=== PATIENT | female | born 1970 | race African-American/Black ===

== ENCOUNTER 2017-03-28 19:23 | Emergency (ER) | payer MEDICARE ==
--- NOTE | ~2017-03-28 | EKG ---
PATIENT: MELISSA SOSA UNIT #: [id number] Ventricular Rate: 93 BPM Atrial Rate: 93 BPM P-R Interval: 138 ms QRS Duration: 68 ms Q-T Interval: 346 ms QTC Calculation(Bezet): 430 ms P [place]: 73 degrees Calculated R [place]: 17 degrees Calculated T [place]: -8 degrees Diagnosis Line: Normal sinus rhythm Diagnosis Line: Right atrial enlargement Diagnosis Line: Nonspecific T wave abnormality Diagnosis Line: Abnormal ECG Diagnosis Line: When compared with ECG of 11-JUL-2012 07:33, Diagnosis Line: Inverted T waves have replaced nonspecific T wave Diagnosis Line: abnormality in Anterolateral leads Diagnosis Line: Confirmed by ADALBERTO LORENZANA MD ([id number]) on Diagnosis Line: 03/30/2017 8:45:46 AM INTERPRETING : CADEN
[2017-03-28 17:22] LABS: BASOPHIL# 0.1 X10e3 (0-0.3); BASOPHIL% 0.8 % (0-2.5); DIFF IND NO; EOSINOPHIL# 0.2 X10e3 (0-0.7); EOSINOPHIL% 1.5 % (0.0-7.0); HEMATOCRIT 44.6 % (35.0-45.0); HEMOGLOBIN 14.5 gm/dL (12.0-16.0); LYMPHOCYTE# 3.6 X10e3 (1.0-3.5); LYMPHOCYTE% 26.8 % (17.0-45.0); MEAN CELL VOLUME 91.7 FL (83-96); MEAN CORPUSCULAR HEMOGLOBIN 29.9 PG (28-34); MEAN CORPUSCULAR HGB CONC 32.6 g/dL (30-36); MEAN PLATELET VOLUME 8.4 FL (6.5-11.5); MONOCYTE% 7.7 % (3.0-12.0); NEUTROPHIL# 8.5 X10e3 (1.5-7.1); NEUTROPHIL% 63.2 % (40-75); PLATELET COUNT 294 X10e3 (140-420); RED BLOOD COUNT 4.86 X10e (3.90-5.30); RED CELL DISTRIBUTION WIDTH 12.6 % (11.0-15.5); WHITE BLOOD COUNT 13.5 X10e3 (4.0-10.5)
[2017-03-28 17:39] LABS: ALBUMIN SERUM 3.8 g/dL (3.5-5.0); ALKALINE PHOSPHATASE 82 U/L (32-92); ALT (SGPT) 15 U/L (10-40); AST (SGOT) 14 U/L (10-42); BILIRUBIN,TOTAL 0.8 mg/dL (0.2-2.0); BLOOD UREA NITROGEN 9 mg/dL (9-23); CARBON DIOXIDE 23 mmol/L (22-31); CHLORIDE 99 mmol/L (100-111); CREATININE SERUM 0.6 mg/dL (0.6-1.4); GLOM FILT RATE Estimated 125.8 mL/min (>60); GLUCOSE FASTING 316 mg/dL (70-110); POTASSIUM 3.7 mmol/L (3.5-5.1); PROTEIN TOTAL SERUM 7.4 g/dL (6.0-8.3); SODIUM 133 mmol/L (135-145)
[2017-03-28 17:40] LABS: BILIRUBIN, DIRECT <0.1 mg/dL (0.0-0.2); BILIRUBIN,INDIRECT 0.7 mg/dL (0.0-0.9)
[2017-03-28 17:52] LABS: POC - CKMB <1.0 ng/mL (0.0-7.9); POC - TROPONIN <0.05 ng/mL (<=0.05)
[~2017-03-28 19:23] MED LIST: ACETAMINOPHEN PO; ADVAIR 1001 DISK W/D PO; ADVAIR 2501 DISK W/D PO; ALBUTEROL17 GM INH; AMITRIPTYLINE H50 MG PO; AMITRYPTYLINE PO; AMLACTIN140 GM TP; ASPIRIN81 M1 PO; BETAPACE120 M1 PO; CELEXA20 MG PO; CPAP; CRESTOR5 MG PO; DOXYCYCLINE HY100 M3 PO; FLAGYL PO; FLEXERIL10 MG PO; FLUCONAZOLE150 MG PO; GABAPENTIN300 MG PO; GRIFULVIN V500 MG PO; HUMALOG MIX 75/10 ML SUBQ; HYCODAN60 ML 5MG/ PO; IMODIUM2 MG PO; KETOPROFEN PO; KOMBIGLYZE XR1 EAC2 PO; LAC-HYDRIN LOT225 GM EXT; LEVAQUIN PO; LEXAPRO PO; LISINOPRIL PO; LISINOPRIL10 MG PO; LISINOPRIL20 MG PO; LOPRESSOR PO; LORTAB 5/500 TA1 TA1 PO; MEDROL DOSEPAK4 MG DOB; MEDROL4 MG/DOSE- PO; METOPROLOL TAR25 MG PO; MOBIC PO; MOBIC15 MG PO; ORUDIS75 M1 PO; PRILOSEC20 MG PO; TOPROL XL PO; TYLOX 5/500 CAP1 CAP PO; TYLOX1 CAP 5/50 PO; VICODIN 5/1 TAB 5/50 PO; VICTOZA0.6 MG/0.1 SQ; VITAMIN D50000 UNIT PO; ZITHROMAX PO; ZOCOR80 MG PO; ZOLOFT PO
[2017-03-28 20:04] LABS: POC - CKMB <1.0 ng/mL (0.0-7.9); POC - TROPONIN <0.05 ng/mL (<=0.05)
== END 2017-03-28 21:13 | disposition home or self-care (01) ==
LOC: CED 19:23
PROVIDERS: Emergency Medicine
DX: R78.9 Finding of unspecified substance, not normally found in blood (principal); B02.9 Zoster without complications; E11.9 Type 2 diabetes mellitus without complications; I48.91 Unspecified atrial fibrillation; F17.210 Nicotine dependence, cigarettes, uncomplicated
CPT/HCPCS: 36415; 80048; 80076; 82553; 82947; 84484; 85025; 85379; 93005; 99283